=== PATIENT | male | born 1945 | race Caucasian/White ===

== ENCOUNTER 2019-04-30 10:45 | Emergency (ER) | payer MEDICARE, OTHER, SELFPAY ==
[2019-04-30 11:00] VITALS: BP 153/86; PULSE 96; RESP 16; TEMP 36.7; O2SAT 96; BMI 24.1
--- NOTE | 2019-04-30 11:25 | ED_ITS ---
HPI - Abdominal Pain General Chief Complaint: Abdominal Pain Stated Complaint: appendix and upper abdominal area in severe pain Time Seen by Provider: 04/30/19 10:52 Source: patient and family Mode of arrival: Family Vehicle Limitations: no limitations History of Present Illness HPI narrative: Patient is a 73-year-old male who presents with right lower quadrant pain ongoing for 5 days. He was actually seen and evaluated 2 days in a row it would be general 3 days ago and 4 days ago. Both days he had CT scans. It the 2nd 1 did show some inflammation of the cecum did not show appendicitis. He was started on Augmentin and Zofran. He has taken 2 and half days worth of antibiotics and says the pain is not any better. He has decrease in appetite not really eating or drinking very much. She denies any body aches. He says when he 1 it does exacerbate the pain. However right now he has no pain. He has no chest pain shortness of breath or cough. MD complaint: abdominal pain Pain Consistency: now resolved Location: RLQ Severity: mild Quality: aching Radiation: none Migration to: no migration Exacerbating factors: nothing Related Data Home Medications Medication Instructions Recorded Confirmed amoxicillin-pot clavulanate 1 tab PO BID 04/30/19 04/30/19 [Augmentin] aspirin 81 mg PO QPM 04/30/19 04/30/19 felodipine 10 mg PO DAILY 04/30/19 04/30/19 hydrochlorothiazide 12.5 mg PO DAILY 04/30/19 04/30/19 lisinopril 20 mg PO DAILY 04/30/19 04/30/19 multivitamin 1 tab PO DAILY 04/30/19 04/30/19 ondansetron 4 mg PO Q6H PRN 04/30/19 04/30/19 oxycodone-acetaminophen 1 tab PO Q6H PRN 04/30/19 04/30/19 simvastatin 40 mg PO QPM 04/30/19 04/30/19 Previous Rx's Medication Instructions Recorded ciprofloxacin HCl [Cipro] 500 mg PO BID #20 tab 04/30/19 metronidazole [Flagyl] 500 mg PO TID #30 tab 04/30/19 promethazine 25 mg PO TID PRN #10 tab 04/30/19 Allergies Allergy/AdvReac Type Severity Reaction Status Date / Time demeclocycline Allergy Dry Mucus Verified 04/30/19 11:18 [From Declomycin] Membranes Review of Systems Review of Systems Narrative: GENERAL: Denies chills, fatigue, malaise, fever, sweats, travel HEENT: Denies sinus pain, ear pain, sore throat, difficulty swallowing, neck pain RESPIRATORY: Denies dyspnea, cough, wheezing, hemoptysis, sputum. CARDIOVASCULAR: Denies chest pain, palpitations, orthopnea, edema GASTROINTESTINAL: See HPI : Denies dysuria, frequency, incontinence, hematuria, urinary retention, flank pain. MUSCULOSKELETAL: Denies weakness, joint pain, or bony pain SKIN: No rash, no erythema, no pruritus NEUROLOGIC: Denies weakness, dizziness, headache, numbness, change in speech, confusion PSYCHIATRIC: No concerning psychosocial issues. 12 point review of systems is negative except for those stated above and HPI Patient History Medical History Hyperlipidemia (Acute) Hypertension (Acute) Social History Smoking Status: Former smoker Smoking Status: Former smoker alcohol intake frequency: 0-2 drinks per day Substance Use Type: does not use Exam Initial Vital Signs Initial Vital Signs: Vital Signs Temperature 98.0 F 04/30/19 11:00 Pulse Rate 96 H 04/30/19 11:00 Respiratory Rate 16 04/30/19 11:00 Blood Pressure 153/86 H 04/30/19 11:00 Pulse Oximetry 96 04/30/19 11:00 GENERAL: Well-appearing, well-nourished and in no acute distress. HEENT: Head atraumatic,EOMI, pupils reactive, face symmetric CARDIOVASCULAR: Regular rate and rhythm without murmurs, rubs or gallops. RESPIRATORY: Breath sounds equal bilaterally, no wheezes rales or rhonchi. ABDOMEN: Soft, nontender. Normoactive bowel sounds all 4 quadrants. No guarding or rebound. No right lower quadrant pain no guarding rebound right upper quadrant pain negative Adams sign EXTREMITIES: Normal range of motion, no clubbing or edema. Neurovascularly intact NEUROLOGICAL: Alert and oriented x4.Normal gait and speech. Cranial nerves II through XII grossly intact. SKIN: Warm, dry, no laceration, no petechiae, no rashes or lesions. Course Orders Ordered: ED Orders 04/30/19 11:30 Complete Blood Count AUTO DIFF Stat Comprehensive Metabolic Panel Stat Lipase Stat Partial Thromboplastin Time Stat Prothrombin Time INR Stat 04/30/19 13:02 XR abdomen min 2V Stat Discontinued Medications Sodium Chloride (Normal Saline 0.9%) 1,000 mls @ 1,000 mls/hr IV BOLUS ONE Stop: 04/30/19 12:38 Last Infusion: 04/30/19 13:30 Dose: 0 mls/hr Documented by: Admin: 04/30/19 12:10 Dose: 1,000 mls/hr Documented by: LILLIE Ondansetron HCl (Zofran) 4 mg IV NOW ONE Stop: 04/30/19 13:03 Last Admin: 04/30/19 13:07 Dose: 4 mg Documented by: LILLIE Consultations Consultation #1: Dr. Gatica, surgery has been updated on patient's symptoms of recent CT scans in current blood work. At this time abdomen is soft and does not appear to be in acute abdomen. He agrees with no CT at this time. Suggest changing antibiotics to Cipro and Flagyl. May follow up in clinic. Time: 12:55 Vital Signs Vital signs: Vital Signs - 8 hr 04/30/19 11:00 04/30/19 11:33 04/30/19 12:09 Temperature 98.0 F Pulse Rate 96 H 92 H 81 Respiratory Rate 16 15 17 Blood Pressure 153/86 H Blood Pressure [Left Arm] 153/86 H 144/80 H Pulse Oximetry 96 97 98 04/30/19 13:00 Temperature Pulse Rate 81 Respiratory Rate 13 Blood Pressure Blood Pressure [Left Arm] 158/85 H Pulse Oximetry 95 MDM - Abdominal Pain Medical Records Attestation: I reviewed the patient's medical records. Medical records narrative: From [facility] CT 04/26/2019 CT abdomen and pelvis: 1 mildly prominent appendix measuring up to 0.7 cm. No appendicolith or significant. Pedicle inflammation. Given the absence of adjacent inflammation secondary findings fever and normal variant for the patient. Recommend low threshold for repeat imaging if patient remains or worsens symptomatically. 2 diverticulosis. No large bowel inflammation or obstruction 04/27/2019 mild inflammatory changes of the cecum. Possible colitis. 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 2 normal appendix. 3 trace fluid no free air abscess. For no dilated bowel or bowel obstruction. Lab Data Attestation: I reviewed the patient's lab results. Result diagrams: 04/30/19 11:30 04/30/19 11:30 Labs: Lab Results 04/30/19 04/30/19 04/30/19 Range/Units 11:30 11:30 11:30 WBC 7.1 (4.5-11.0) X10^3/uL RBC 5.27 (4.5-5.9) X10^6/uL Hgb 17.2 (13.5-17.5) g/dL Hct 48.5 (41-53) % MCV 91.9 (80-100) fL MCH 32.6 (26-34) PG MCHC 35.5 (30-36) % RDW 13.5 (11.6-14.8) % Plt Count 259 (150-400) X10^3/uL Neut % (Auto) 76.6 H (50-75) % Lymph % (Auto) 16.0 L (25-40) % [place] % (Auto) 7.1 (3-14) % Eos % (Auto) 0.1 L (2-4) % Baso % (Auto) 0.2 (0-2) % Neut # (Auto) 5400 (1431-6457) /uL Lymph # (Auto) 1100 (0255-5889) /uL [place] # (Auto) 500 (0-900) /uL Eos # (Auto) 0 (0-450) /uL Baso # (Auto) 0 (0-100) /uL PT 12.1 (10.1-12.7) SECONDS INR 1.1 (0.9-1.3) APTT 28 (26.4-36.2) SECONDS Sodium 136 L (137-145) mmol/L Potassium 3.5 (3.4-5.1) mmol/L Chloride 96 L (98-107) mmol/L Carbon Dioxide 22 (22-32) mmol/L BUN 18 (9-20) mg/dL Creatinine 1.00 (0.66-1.25) mg/dL Estimated GFR > 60.0 (>60) mL/min BUN/Creatinine Ratio 18.0 (6-22) Glucose 102 (80-110) mg/dL Calcium 10.4 H (8.4-10.2) mg/dL Total Bilirubin 1.2 (0.2-1.3) mg/dL AST 37 (17-59) IU/L ALT 36 (<50) IU/L Alkaline Phosphatase 69 (38-126) U/L Total Protein 9.1 H (6.3-8.2) g/dL Albumin 5.4 H (3.5-5.0) g/dL Globulin 3.7 (1.7-4.1) g/dL Albumin/Globulin Ratio 1.5 (1.0-2.8) Lipase 95 (23-300) U/L Point of care testing: Urine Dip Bedside Urine Glucose Negative Bedside Urine Bilirubin - Negative Bedside Urine Ketone +++ 80 Urine Specific [place] 1.025 Bedside Urine Occult Blood - Negative Bedside Urine pH 6.0 Bedside Urine Protein - Negative Bedside Urine Urobilinogen - Negative Bedside Urine Nitrite - Negative Bedside Urine Leukocytes - Negative Esterase Imaging Data Abdominal x-ray: Radiologist's Impression: PROCEDURE: XR ABDOMEN MIN 2V INDICATIONS: nausea TECHNIQUE: 2 views of the abdomen were acquired. COMPARISON: None. FINDINGS: Surgical changes and devices: None. Bowel: No pneumoperitoneum. A few air-filled small bowel loops are evident that are not distended within the left upper abdomen. No air-fluid levels are identified. A normal amount of stool appears to be present within the colon. Soft tissues: No masses; visualized solid organ contours appear normal in size. No suspicious abdominal calcifications. Bones: No suspicious bony abnormalities. Mild degenerative changes of the pelvic joints are evident. Moderate degenerative changes of the lumbar spine are not adequately characterized. IMPRESSION: 1. No bowel obstruction. 2. Probable small bowel ileus within the left upper abdomen. Dictated by: Piotr Hurtado M.D. on 04/30/2019 at 12:39 Approved by: Piotr Hurtado M.D. on 04/30/2019 at 12:40 MDM Narrative Medical decision making narrative: I have reviewed records from [facility]. 2 CTs done showing possible inflammation of cecum. Blood work today is overall reassuring and is similar to what it was previously he has no leukocytosis he is afebrile. Patient feeling a little nauseous he is given Zofran a. Abdomen is re-examined and continues to be soft and nontender despite being nauseated. At will change antibiotics to Cipro and Flagyl per surgery recommendation and recommend outpatient follow-up. Discussed at length with patient and warning signs and when to return to emergency department. Discharge Plan Departure Patient Disposition: Home Clinical Impression: Colitis Discharge Date/Time: 04/30/19 13:49 Instructions: DI for Colitis Activity Restrictions/Additional Instructions: *You have been diagnosed with colitis *What to do: At this time blood work is overall reassuring there was no indication for repeat CT scan today your x-ray did not show any blockage. However we will change her antibiotics to stronger antibiotic *Continue to take medications as directed Stop taking Augmentin Cipro 500 mg twice a day for 10 days Flagyl 500 mg 3 times a day for 10 days Phenergan 25 mg every 6 hours if needed for nausea *Follow up with your primary care provider in 2-3 days, call your provider today *Return to ER if you should have increased pain fevers inability to tolerate fluids or any new, worsening or concerning symptoms Prescriptions: New promethazine 25 mg tablet 25 mg PO TID PRN (Reason: nausea and vomiting) Qty: 10 RF: 0 ciprofloxacin HCl [Cipro] 500 mg tablet 500 mg PO BID Qty: 20 RF: 0 metronidazole [Flagyl] 500 mg tablet 500 mg PO TID Qty: 30 RF: 0 No Action lisinopril 20 mg Tablet 20 mg PO DAILY RF: 0 aspirin 81 mg Tablet,Delayed Release (Dr/Ec) 81 mg PO QPM RF: 0 simvastatin 40 mg Tablet 40 mg PO QPM RF: 0 oxycodone-acetaminophen 5-325 mg Tablet 1 tab PO Q6H PRN (Reason: pain) RF: 0 felodipine 10 mg Tablet Extended Release 24 Hr 10 mg PO DAILY RF: 0 ondansetron 4 mg Tablet,Disintegrating 4 mg PO Q6H PRN (Reason: Nausea) RF: 0 amoxicillin-pot clavulanate [Augmentin] 875-125 mg Tablet 1 tab PO BID RF: 0 hydrochlorothiazide 12.5 mg Tablet 12.5 mg PO DAILY RF: 0 multivitamin 1 tab PO DAILY RF: 0
[2019-04-30 11:33] VITALS: BP 153/86; PULSE 92; RESP 15; O2SAT 97
[2019-04-30 11:36] LABS: Add Manual Diff / Slide Review NO; Basophils Absolute Auto 0 /uL (0-100); Basophils Percent Auto 0.2 % (0-2); Eosinophils Absolute Auto 0 /uL (0-450); Eosinophils Percent Auto 0.1 % (2-4); Hematocrit 48.5 % (41-53); Hemoglobin 17.2 g/dL (13.5-17.5); Lymphocytes Absolute Auto 1100 /uL (1100-4500); Mean Corpuscular HGB Conc 35.5 % (30-36); Mean Corpuscular Hemoglobin 32.6 PG (26-34); Mean Corpuscular Volume 91.9 fL (80-100); Monocytes Absolute Auto 500 /uL (0-900); Monocytes Percent Auto 7.1 % (3-14); Neutrophils Absolute Auto 5400 /uL (1500-7000); Neutrophils Percent Auto 76.6 % (50-75); Platelet Count 259 X10^3/uL (150-400); Red Blood Cell Count 5.27 X10^6/uL (4.5-5.9); Red Cell Distribution Width 13.5 % (11.6-14.8); White Blood Cell Count 7.1 X10^3/uL (4.5-11.0)
[2019-04-30 11:42] LABS: INR 1.1 (0.9-1.3); Prothrombin Time 12.1 SECONDS (10.1-12.7)
[2019-04-30 11:45] LABS: PTT Partial Thromboplastin Tim 28 SECONDS (26.4-36.2)
[2019-04-30 11:48] LABS: Alanine Aminotransferase 36 IU/L (<50); Albumin 5.4 g/dL (3.5-5.0); Albumin Globulin Ratio 1.5 (1.0-2.8); Alkaline Phosphatase 69 U/L (38-126); Aspartate Aminotransferase 37 IU/L (17-59); Bilirubin Total 1.2 mg/dL (0.2-1.3); Blood Urea Nitrogen 18 mg/dL (9-20); Calcium 10.4 mg/dL (8.4-10.2); Carbon Dioxide 22 mmol/L (22-32); Chloride 96 mmol/L (98-107); Estimated Glomerular Filt Rate > 60.0 mL/min (>60); Globulin 3.7 g/dL (1.7-4.1); Glucose 102 mg/dL (80-110); HEMOLYSIS < 15 (0-50); Lipase 95 U/L (23-300); Potassium 3.5 mmol/L (3.4-5.1); Sodium 136 mmol/L (137-145); Total Protein 9.1 g/dL (6.3-8.2)
[2019-04-30 12:09] VITALS: BP 144/80; PULSE 81; RESP 17; O2SAT 98
[2019-04-30] MEDS: SODIUM CHLORIDE 0.9% 1,000 ML 1000 ML IV (12:10)
[2019-04-30 13:00] VITALS: BP 158/85; PULSE 81; RESP 13; O2SAT 95
--- NOTE | 2019-04-30 13:02 | DI.RAD.S_ITS ---
PROCEDURE: XR ABDOMEN MIN 2V INDICATIONS: nausea TECHNIQUE: 2 views of the abdomen were acquired. COMPARISON: None. FINDINGS: Surgical changes and devices: None. Bowel: No pneumoperitoneum. A few air-filled small bowel loops are evident that are not distended within the left upper abdomen. No air-fluid levels are identified. A normal amount of stool appears to be present within the colon. Soft tissues: No masses; visualized solid organ contours appear normal in size. No suspicious abdominal calcifications. Bones: No suspicious bony abnormalities. Mild degenerative changes of the pelvic joints are evident. Moderate degenerative changes of the lumbar spine are not adequately characterized. IMPRESSION: 1. No bowel obstruction. 2. Probable small bowel ileus within the left upper abdomen. Dictated by: Piotr Hurtado M.D. on 04/30/2019 at 12:39 Approved by: Piotr Hurtado M.D. on 04/30/2019 at 12:40
[2019-04-30] MEDS: ONDANSETRON 4 MG/2 ML INJ IV (13:07)
== END 2019-04-30 13:49 | disposition home or self-care (01) ==
PROVIDERS: Emergency Provider Emergency Medicine
DX: K52.9 Noninfective gastroenteritis and colitis, unspecified (principal)
CPT/HCPCS: 36415; 74019; 80053; 81003; 83690; 85025; 85610; 85730; 96361; 96374; 99284; J2405